=== PATIENT | male | born 1985 | race Caucasian/White ===

== ENCOUNTER 2016-08-06 15:56 | Emergency (ER) | payer OTHER ==
[2016-08-06 16:03] VITALS: BP 97/61; PULSE 79; RESP 18; TEMP 97.8; O2SAT 97
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
== END 2016-08-06 20:02 | disposition home or self-care (01) ==
LOC: H.ER 15:56
DX: M54.2 Cervicalgia (principal); M54.9 Dorsalgia, unspecified; V49.40XA Driver injured in collision with unspecified motor vehicles in traffic accident, initial encounter